=== PATIENT | male | born 1945 | race Caucasian/White ===

== ENCOUNTER 2017-02-28 14:24 | Day surgery (SDC) | payer MEDICARE, BC ==
[~2017-02-28 14:24] MED LIST: METOCLOPRAMIDE HCL 5 MG/ML VIAL IV PRN; MORPHINE SULFATE 2 MG/ML DISP.SYRIN IV PRN; MORPHINE SULFATE 4 MG/ML SYRG IV PRN; ONDANSETRON HCL/PF 2 MG/ML VIAL IV PRN; oxyCODONE HCL/ACETAMINOPHEN 1 TAB TABLET PO PRN
--- OUTSIDE RECORDS SUMMARY | 2017-02-28 14:28 | XMS REPORT | Continuity of Care Document ---
:1945 Demographics Phone Unavailable Preferred Language Unknown Marital Status Unknown Holiness Affiliation Unknown Race Unknown Ethnic Group Unknown Author Organization [facility] ([facility]) Address [place] [address] Phone [phone] Care Team Providers Name Role Phone Unavailable Primary Care Provider Unavailable Source Comments This disclosure is being made pursuant to the Care Everywhere program, applicable federal and state laws, and may not contain all informaitonavailable regarding this patient.[facility] ([facility]) Active Allergies and Adverse Reactions Not on File Current Medications Not on file Active Problems Not on file Social History Tobacco Use Types Packs/Day Years Used Date Never Assessed Plan of Care Health Maintenance Due Date Last Done Comments Hepatitis B Vaccine (1 of 3 - Primary Series) 1945 Tdap Vaccine 12/30/1954 Lipid Disorder Screening 12/30/1961 Td Vaccine 12/30/1961 Mammogram 1983 Colonoscopy 12/30/1993 Zoster Vaccine 2003 Osteoporosis Screening (DXA Bone Density) 12/30/2008 Pneumococcal Vaccine (1 of 2 - PCV13) 12/30/2008 Influenza Vaccine: Seasonal (#1) 05/08/2016 Results from Last 3 Months Not on file
--- NOTE | 2017-02-28 16:13 | OR ---
Operative Report - Dictated Report Narrative: Preoperative diagnosis: Indwelling stent and Gayle catheter Postoperative diagnosis: Same Anesthesia: None Procedure: #1 removal of Gayle catheter #2 Flexible cystoscopy with stent removal Indications: 71-year-old male post-recent right-sided diagnostic ureteroscopy with stent. Also Gayle catheter secondary to postoperative retention history. Presents today for both. Descritpion: Consent obtained. Balloon deflated prior catheter removed. Patient prepped and drapped. Flexible scope inserted and navigated to bladder. Stent identified, grasped and pulled per urethra. Patient tolerated. EBL: 0 ml Specimen: None Condition: Tolerated procedure Follow-up: He will initiate maintenance BCG per protocol and a couple weeks.
[2017-02-28] MEDS ORDERED: KETOROLAC TROMETHAMINE 10 MG TABLET PO PRN (16:14)
[2017-02-28] MEDS ORDERED: ONDANSETRON 4 MG TAB.RAPDIS PO PRN (16:15)
[2017-02-28 19:23] VITALS: BP 154/74
== END 2017-02-28 14:25 | disposition home or self-care (01) ==
LOC: AMB 14:24
PROVIDERS: ATTEND Urology
PROC: 0TP98DZ Removal of Intraluminal Device from Ureter, Via Natural or Artificial Opening Endoscopic (ICD-10-PCS; principal; 2017-02-28 17:35)
DX: Z46.6 Encounter for fitting and adjustment of urinary device (principal); N40.1 Benign prostatic hyperplasia with lower urinary tract symptoms; Z85.51 Personal history of malignant neoplasm of bladder; Z87.891 Personal history of nicotine dependence; Z68.25 Body mass index [BMI] 25.0-25.9, adult